=== PATIENT | female | born 1995 | race African-American/Black ===

== ENCOUNTER 2017-07-06 20:28 | Emergency (ER) | payer OTHER, MEDICAID ==
[2017-07-06] MEDS ORDERED: ACETAMINOPHEN 325 MG TABLET PO ONE (21:45)
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
[2017-07-07 01:38] VITALS: BP 123/59
== END 2017-07-07 01:38 | disposition home or self-care (01) ==
LOC: ER 20:28
DX: O9A.211 Injury, poisoning and certain other consequences of external causes complicating pregnancy, first trimester (principal); S16.1XXA Strain of muscle, fascia and tendon at neck level, initial encounter; M54.9 Dorsalgia, unspecified; V43.62XA Car passenger injured in collision with other type car in traffic accident, initial encounter; Y92.410 Unspecified street and highway as the place of occurrence of the external cause; R51 Headache; Z3A.12 12 weeks gestation of pregnancy
CPT/HCPCS: 72050; 76805; 99284